=== PATIENT | male | born 1990 | race African-American/Black ===

== ENCOUNTER 2016-04-07 04:53 | Emergency (ER) | payer OTHER ==
[2016-04-07] MEDS ORDERED: PREDNISONE 50 MG TAB ONE (05:16)
[2016-04-07] MEDS ORDERED: NEB-ALBUTEROL 2.5 MG/3 ML INH ONE (05:20)
[2016-04-07] MEDS ORDERED: DUONEB INH ONE (05:58)
== END 2016-04-07 06:20 | disposition home or self-care (01) ==
LOC: ER 04:53
DX: J45.31 Mild persistent asthma with (acute) exacerbation (principal); F17.210 Nicotine dependence, cigarettes, uncomplicated
CPT/HCPCS: 71010; 94640